=== PATIENT | female | born 1950 | race Caucasian/White ===

== ENCOUNTER 2024-07-28 15:46 | Observation (INO) | payer MEDICARE, OTHER ==
[~2024-07-28] VITALS: Ht 157.5 cm; Wt 108.6 kg
[~2024-07-28 15:46] MED LIST: ACETAMINOPHEN500 MG PO; AMLODIPINE BESYL5 MG PO; ASPIR 8181 MG PO; COZAAR25 MG PO; ESCITALOPRAM OX10 MG PO; HYDROCHLOROTHIA25 MG PO; LATANOPROST2.5 ML OPTH; LOPERAMIDE2 M1 PO; LOSARTAN-HCTZ1 EACH PO; METOPROLOL SUCC25 MG PO; OXYCODON-ACETA1 EAC2 PO; SEVOFLURANE 250 ML BTL INH ONE
[2024-07-28] MEDS ORDERED: LOSARTAN POTASS50 MG PO (16:06)
[2024-07-28] MEDS ORDERED: METFORMIN HCL500 M1 PO (16:06)
[2024-07-28] MEDS ORDERED: ATORVASTATIN CA20 MG PO (16:06)
[2024-07-28 16:35] LABS: BASOPHILS 0.7 % (0-2); EOSINOPHILS 4.1 % (0-6); HEMATOCRIT 40.7 % (35.0-50.0); HEMOGLOBIN 14.2 g/dL (12.0-18.0); LYMPHOCYTES 21.3 % (24-44); MCH 31.3 (27-36); MCHC 34.9 g/dl (30-36); MCV 89.9 fl (81-99); MONOCYTES 7.8 % (0-12); NEUTROPHILS 66.1 % (39-80); PLATELET COUNT 242 K/uL (140-440); RBC 4.53 M/ul (4.3-5.7); RDW 13.5 (10.5-15.0)
[2024-07-28 16:39] LABS: ANION GAP 10.6 (7-21); BUN/CREATININE RATIO 21.21 (6.0-28.6); CALCIUM 9.8 mg/dL (8.5-10.1); CREATININE, SERUM 0.99 mg/dL (0.55-1.02); POTASSIUM 3.6 mmol/L (3.5-5.1)
[2024-07-28] MEDS ORDERED: LACTATED RINGER'S 1,000 ML IV SCH ×2 (16:45→17:15)
[2024-07-28] MEDS ORDERED: ondansetron HCL 4 MG/2 ML VIAL IV PRN (17:15)
[2024-07-28] MEDS ORDERED: LIDOCAINE HCL 2% 5 ML SDV ONE (17:39)
[2024-07-28] MEDS ORDERED: propofoL 200 MG/20 ML VIAL ONE (17:39)
[2024-07-28] MEDS ORDERED: ROCURONIUM BROMIDE 50 MG/5 ML SYR ONE (17:39)
[2024-07-28] MEDS ORDERED: ondansetron HCL 4 MG/2 ML VIAL ONE (17:39)
[2024-07-28] MEDS ORDERED: SUCCINYLCHOLINE IN 0.9% NACL 200 MG/10 ML SYRINGE ONE (17:39)
[2024-07-28] MEDS ORDERED: fentaNYL citrate 100 MCG/2 ML VIAL ONE (17:39)
[2024-07-28] MEDS ORDERED: DEXAMETHASONE SOD PHOS 4 MG/ML VIAL ONE (18:14)
[2024-07-28] MEDS ORDERED: FLUTICASONE PRO16 GM NAS (18:39)
[2024-07-28] MEDS ORDERED: SUCRALFATE1 GM PO (18:40)
[2024-07-28 18:47] VITALS: BP 122/53
[2024-07-28] MEDS ORDERED: PROTONIX40 MG PO (20:13)
[2024-07-28] MEDS ORDERED: PROTONIX40 MG (20:50)
[2024-07-28] MEDS ORDERED: FLUTICASONE PROPIONATE 50 MCG BTL NAS SCH (21:00)
[2024-07-28] MEDS ORDERED: PANTOPRAZOLE SODIUM 40 MG TABEC PO SCH (21:00)
[2024-07-28] MEDS ORDERED: SUCRALFATE 1 GM TAB PO SCH (21:00)
[2024-07-28 21:20] VITALS: BP 152/72
--- NOTE | 2024-07-30 14:33 | OR ---
[facility] [address] [place], [place] [address] Signed DATE OF OPERATION: 07/28/2024 SURGEON: Fernando Dubois MD PREOPERATIVE DIAGNOSIS: Food impaction, proximal esophagus. No clinical antecedent gastroesophageal reflux history. POSTOPERATIVE DIAGNOSES: 1. Two specific strictures of esophagus, one at 18 cm, the other at 25 cm, food impaction in the past. 2. Poor flap valve and associated proximal gastritis. PROCEDURE: Esophagogastroduodenoscopy with biopsy of strictures. ANESTHESIA: General endotracheal, Alvin Argueta, CORPORATE CONTROLLER. 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 She is well known to me from the past. 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 She has recovered from that fully. For the past month, she has had episodes of "slow swallowing" and today after eating a hamburger had sensation of impaction of food in the proximal esophagus. This resulted in hypersalivation and she presented to the emergency room, where she was evaluated by Dr. Carlisle. Her CBC and chem profile are normal. She takes no medication for reflux and denies clinical reflux-type symptoms. I have recommended upper endoscopy to remove the foreign body that is present and other indicated procedures depending on findings. The risk of bleeding, infection, perforation, and so forth were reviewed with her in detail. She understands and wished to proceed. FINDINGS: Safe intubation of the trachea was undertaken. The scope was easily passed into the esophagus. At approximately 18 cm from the incisors, there was a concentric stricture that was short, but no sign of foreign body at that point. This scope with some amount of deliberate and controlled pressure was passed through the strictured area to the distal esophagus, which had additional inflammatory changes and some suggestion of Electronically Signed By: FERNANDO DUBOIS MD 07/30/24 3397 PATIENT NAME: NEGIN OSPINA OPERATIVE REPORT DATE OF : 48 REPORT #: [id number] PHYSICIAN: FERNANDO DUBOIS MD PCP: ROOPA JOYCE DO REPORT IS CONFIDENTIAL AND NOT TO BE RELEASED WITHOUT AUTHORIZATION [facility] [address] [place], [place] [address] Signed possible eosinophilic esophagitis. The scope was easily passed to the stomach at that point. The stomach was evaluated and rugal folds appeared normal. The pylorus was normal. Scope was passed through it into the duodenum, which was normal. Biopsies were taken of the duodenum and subsequently the proximal esophagus. CLOtest biopsies were taken as well. The CLOtest was negative 20 minutes post procedure. Retroflexed view confirmed a poor flap valve and small hiatal hernia. The scope was withdrawn after biopsies of the proximal stomach to the distal esophagus, which had inflammation, but no sign of Phelps's epithelium. Biopsies were obtained. Further withdrawal to 25 cm showed an area of inflammatory change, which was also biopsied and upon withdrawal to the more proximal esophagus at 18 cm, the area of fracturing of the web was quite obvious. Biopsies were taken of this area at 18 cm as well. Further withdrawal showed no other findings of concern. The patient was taken to recovery room in good condition. CONCLUDING DIAGNOSIS: Significant progressive dysphagia, probably eosinophilic esophagitis, though pathology is pending. PLAN: Empiric treatment with Carafate slurry for 2 weeks to help mucosal healing. Initiate proton pump inhibitor omeprazole 20 mg p.o. b.i.d. for now and initiate fluticasone two sprays b.i.d. swallowed x3 weeks with 1 week of rest with ongoing therapy. We will plan to see her back in the office in 4 to 6 weeks as well. MD BECKY Anna/JULIAL /[id number] cc: MD Kiran Carlisle MD Electronically Signed By: FERNANDO DUBOIS MD 07/30/24 1433 PATIENT NAME: NEGIN OSPINA OPERATIVE REPORT DATE OF : [birth year] REPORT #: [id number] PHYSICIAN: FERNANDO DUBOIS MD PCP: ROOPA JOYCE DO REPORT IS CONFIDENTIAL AND NOT TO BE RELEASED WITHOUT AUTHORIZATION [facility] [address] [place], [place] [address] Signed Copies: ~ Electronically Signed By: FERNANDO DUBOIS MD 07/30/24 1433 PATIENT NAME: NEGIN OSPINA OPERATIVE REPORT DATE OF : 48 REPORT #: [id number] PHYSICIAN: FERNANDO DUBOIS MD PCP: ROOPA JOYCE DO REPORT IS CONFIDENTIAL AND NOT TO BE RELEASED WITHOUT AUTHORIZATION
--- NOTE | 2024-07-30 14:33 | HP ---
[facility] [address] [place], [place] [address] Signed ADMISSION DATE: 07/28/2024 TIME: 5:05 p.m. PROBLEM: Possible food impaction, proximal esophagus. 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 She has recovered from that well. The patient has had episodic proximal cervical dysphagia-type symptoms over the past month or so. She was eating a hamburger today and thought that an onion or similar food product was "stuck in her throat". She points to the sternal notch as area of problem. The patient has had regurgitation of secretions, and generally speaking, does not feel like the process has passed. She has somewhat of a hoarse voice as well at least from my recollection of her normal voice and she thinks that is mostly related to the fact her dentures are not in at this time. Her medications at time of presentation include Tylenol, escitalopram, latanoprost, hydrochlorothiazide, losartan, and atorvastatin. She last ate at 2:30 and did not have too much when she felt the sensation of obstruction. SOCIAL HISTORY: She is here with her daughter. She lives in [place]. She previously worked at [employer] as a manager medicare marketing. REVIEW OF SYSTEMS: Denies any chest pain or shortness of breath. Does have some excessive secretions. CHEST: Shows normal respiratory excursion without tachypnea. Trachea is midline. There is no crepitus. ABDOMEN: Nondistended. EXTREMITIES: Show no clubbing, cyanosis, or edema. LABORATORY STUDIES: Show a white count of 7.3, hematocrit 40.7, platelets 242,000. Chem profile essentially normal. BUN is 21, glucose is 115, calcium 9.8. Electronically Signed By: FERNANDO DUBOIS MD 07/30/24 1433 PATIENT NAME: NEGIN OSPINA HISTORY AND PHYSICAL DATE OF : 48 REPORT #: [id number] PHYSICIAN: FERNANDO DUBOIS MD PCP: ROOPA JOYCE DO REPORT IS CONFIDENTIAL AND NOT TO BE RELEASED WITHOUT AUTHORIZATION [facility] [address] [place], [place] [address] Signed ASSESSMENT: She may or may not have food impaction at the level of the esophagus described at the cervical or sternal notch. It is reasonably probable she does. She has had antecedent dysphagia leading to this time. She denies any reflux problems from the past and certainly takes no anti-reflux medications. I would recommend upper endoscopy under general anesthesia and removal of foreign body if present. If not, complete evaluation and biopsy, as she may have some other cause of her sensation of dysphagia. The risk of bleeding, infection, and perforation was reviewed with her in detail. She understands and wished to proceed. MD BECKY Anna/JASON /[id number] cc: DO Dr. Rachael Mireles Copies: ROOPA JOYCE DO ~ Electronically Signed By: FERNANDO DUBOIS MD 07/30/24 1433 PATIENT NAME: NEGIN OSPINA HISTORY AND PHYSICAL DATE OF : 48 REPORT #: [id number] PHYSICIAN: FERNANDO DUBOIS MD PCP: ROOPA JOYCE DO REPORT IS CONFIDENTIAL AND NOT TO BE RELEASED WITHOUT AUTHORIZATION
--- NOTE | 2024-08-02 20:21 | PATH ---
[facility] [address] [facility] [place], [place] [address] Signed THIS IS AN ADDENDUM REPORT SPECIMEN(S): A PROXIMAL STOMACH BIOPSY SPECIMEN(S): B LOWER ESOPHAGEAL BIOPSY SPECIMEN(S): C STRICTURE MIDDLE ESOPHAGEAL BIOPSY SPECIMEN(S): D ESOPHAGEAL BIOPSY, 18 CM SPECIMEN SOURCE: A. PROXIMAL STOMACH BIOPSY B. LOWER ESOPHAGEAL BIOPSY C. STRICTURE MIDDLE ESOPHAGEAL BIOPSY D. ESOPHAGEAL BIOPSY, 18 CM CLINICAL HISTORY: Food impaction, stricture at 18 cm and 25 cm FINAL PATHOLOGIC DIAGNOSIS: A. Proximal stomach, biopsies: - Mild nonspecific chronic gastritis. - Negative for Helicobacter pylori by HE. - Negative for intestinal metaplasia, dysplasia or malignancy. B. Lower esophagus, biopsy: - Fragments of gastric glandular and squamous mucosa with mild reflux-associated change. - Negative for intestinal metaplasia, dysplasia or malignancy. C. Stricture middle esophagus, biopsies: - Gastric glandular and squamous mucosa with mild reflux-associated change. - Negative for eosinophilic esophagitis, dysplasia or malignancy. D. Esophagus at 18 cm, biopsies: - Mild acute esophagitis with mild reactive change. - Negative for eosinophilic esophagitis, dysplasia or malignancy. - A PAS stain for fungal organisms is pending and will be reported by addendum. CHITRA:dc MICROSCOPIC EXAMINATION: Histologic sections of all submitted blocks are examined by light microscopy. These findings, together with the gross examination, support the pathologic diagnosis. GROSS DESCRIPTION: PATIENT NAME: NEGIN CLARKE PATHOLOGY DATE OF : 48 REPORT #: [id number] PHYSICIAN: [employer] PATHOLOGY PCP: ROOPA JOYCE DO REPORT IS CONFIDENTIAL AND NOT TO BE RELEASED WITHOUT AUTHORIZATION [facility] [address] [place], [place] [address] Signed A. The specimen, labeled and designated "Jammie Clarke, proximal stomach biopsy," is received in formalin and consists of one mckeon soft tissue fragment, 0.4 cm. Entirely submitted in (A1). B. The specimen, labeled and designated "Jammie Clarke, lower esophageal biopsy," is received in formalin and consists of two mckeon soft tissue fragments, ranging from 0.2-0.7 cm. Entirely submitted in (B1). C. The specimen, labeled and designated "Jammie Clarke, stricture middle esophageal biopsy," is received in formalin and consists of four mckeon soft tissue fragments, ranging from 0.2-0.4 cm. Entirely submitted in (C1). D. The specimen, labeled and designated "Jammie Clarke, esophageal biopsy, 18 cm," is received in formalin and consists of four mckeon soft tissue fragments, ranging from 0.2-0.5 cm. Entirely submitted in (D1). AB (under the direct supervision of a pathologist) The Gross Description was prepared using a voice recognition system. The report was reviewed for accuracy; however, sound-alike word errors, addition and/or deletions may occur. If there is any question about this report, please contact Client Services. PERFORMING LABORATORY: Technical component was performed by [facility], [address] [place] [id number] (CLIA# [id number]). Professional interpretation was performed by [facility], [address] [place] [id number] (CLIA#: [id number]). ADDITIONAL NOTES: Immunohistochemical and/or in situ hybridization studies if performed in this case included appropriate positive controls that reacted as expected. This test was developed and its performance characteristics determined by [facility]. It has not been cleared or approved by the U.S. Food and Drug Administration. The FDA has determined that such clearance or approval is not necessary. This test is used for clinical purposes. It should not be regarded as investigational or for research. [facility] is certified under the Clinical Laboratory Improvement Amendments of 1988 (CLIA) as qualified to perform high complexity clinical laboratory testing. Professional interpretation was performed by [facility] - [place] - [address] [place] [address] (CLIA#: [id number]). PATIENT NAME: NEGIN CLARKE PATHOLOGY DATE OF : 48 REPORT #: [id number] PHYSICIAN: SUNITA ANGEL PCP: ROOPA JOYCE DO REPORT IS CONFIDENTIAL AND NOT TO BE RELEASED WITHOUT AUTHORIZATION [facility] [address] [place], [place] [address] Signed REASON FOR ADDENDUM: To report the result of a PAS with diastase stained section. ADDENDUM PATHOLOGIC DIAGNOSIS: PAS with diastase stain on specimen D, esophageal biopsy at 18 cm: - Negative for fungal organisms. ADDENDUM COMMENT: A PAS with diastase stain is performed with appropriate controls on block D1 and is negative for fungal organisms. There is no diagnostic features remain unchanged. [facility] Diagnostician: Jalen Fan MD Pathologist Diagnostician: Damian Barajas MD Pathologist Electronically Signed 08/02/2024 Copies: ~ PATIENT NAME: NEGIN CLARKE PATHOLOGY DATE OF : 48 REPORT #: [id number] PHYSICIAN: SUNITA ANGEL PCP: ROOPA JOYCE DO REPORT IS CONFIDENTIAL AND NOT TO BE RELEASED WITHOUT AUTHORIZATION
== END 2024-07-28 21:35 | disposition home or self-care (01) ==
LOC: ED 15:46 → MS 15:48
PROVIDERS: Emergency Medicine; ADMIT Surgery; ATTEND Surgery
PROC: 0DB28ZX Excision of Middle Esophagus, Via Natural or Artificial Opening Endoscopic, Diagnostic (ICD-10-PCS; 2024-07-28)
PROC: 0DB38ZX Excision of Lower Esophagus, Via Natural or Artificial Opening Endoscopic, Diagnostic (ICD-10-PCS; 2024-07-28)
PROC: 0DB68ZX Excision of Stomach, Via Natural or Artificial Opening Endoscopic, Diagnostic (ICD-10-PCS; principal; 2024-07-28 17:31)
DX: K22.2 Esophageal obstruction (principal); K20.90 Esophagitis, unspecified without bleeding; K29.50 Unspecified chronic gastritis without bleeding; I10 Essential (primary) hypertension; Z87.891 Personal history of nicotine dependence; Z88.6 Allergy status to analgesic agent; Z79.899 Other long term (current) drug therapy
CPT/HCPCS: 00731; 36415; 80048; 85025; 88305; 88312; A9270; G0378; J0330; J1100; J2003; J2405; J2704; J3010; J3490

== ENCOUNTER 2024-09-19 10:57 | Emergency (ER) | payer OTHER, MEDICARE ==
[~2024-09-19] VITALS: Ht 157.5 cm; Wt 106.2 kg
[~2024-09-19 10:57] MED LIST changes: +ATORVASTATIN CA20 MG PO; +FLUTICASONE PRO16 GM NAS; +LOSARTAN POTASS50 MG PO; +METFORMIN HCL500 M1 PO; +PROTONIX40 MG; +PROTONIX40 MG PO; -SEVOFLURANE 250 ML BTL INH ONE; +SUCRALFATE1 GM PO
[2024-09-19] MEDS ORDERED: ACETAMINOPHEN 500 MG TAB PO ONE (11:15)
[2024-09-19 13:07] VITALS: BP 139/55
== END 2024-09-19 13:08 | disposition home or self-care (01) ==
LOC: ED 10:57
DX: S00.03XA Contusion of scalp, initial encounter (principal); I10 Essential (primary) hypertension; X58.XXXA Exposure to other specified factors, initial encounter; Z79.899 Other long term (current) drug therapy; Z79.51 Long term (current) use of inhaled steroids; Z88.6 Allergy status to analgesic agent; Z87.891 Personal history of nicotine dependence
CPT/HCPCS: 70450; 72125; 99284-25; A9270

== ENCOUNTER 2025-01-15 05:47 | Day surgery (SDC) | payer MEDICARE, OTHER ==
[~2025-01-15] VITALS: Ht 157.5 cm; Wt 105.0 kg
[~2025-01-15 05:47] MED LIST changes: +LACTATED RINGER'S 1,000 ML IV SCH; +OMEPRAZOLE20 MG PO
[2025-01-15 06:02] VITALS: BP 154/71
[2025-01-15] MEDS ORDERED: IBLOOD GLUCOSE TEST STRIP 1 EA TEST VI PRN (07:00)
[2025-01-15] MEDS ORDERED: LIDOCAINE HCL 1% 5 ML SDV INJ ONE (07:00)
[2025-01-15] MEDS ORDERED: LIDOCAINE HCL 2% 5 ML SDV ONE (07:46)
--- NOTE | 2025-01-15 08:08 | NUR ---
01/15/25 0808 Bonita Brown 0802-PATIENT ARRIVED TO PACU ON 4L NC RR EVEN REACTIVE TO VERBAL STIMULI MOVING EXTREMITIES AND OPENING EYES ORIENTED TO PACU. SINUS BRADYCARDIA HR 50'S. IVF INFUSING
[2025-01-15 08:57] VITALS: BP 159/70
--- NOTE | 2025-01-16 11:20 | OR ---
[facility] [address] [place], [place] [address] Signed DATE OF OPERATION: 01/15/2025 SURGEON: Fernando Dubois MD PREOPERATIVE DIAGNOSES: 1. History of food impaction in July 2024 with segmental stricture at 18 and 25 cm. 2. Negative history of eosinophilic esophagitis. POSTOPERATIVE DIAGNOSIS: Chronic inflammatory change 18-25 cm. PROCEDURES: 1. Esophagogastroduodenoscopy. 2. Cuban over the wire, 42-Burmese single pass dilation. ANESTHESIA: Propofol infusion, Alvin Argueta, ENTERPRISE APPLICATION DEVELOPER. INDICATION: A 74-year-old woman is a patient of Dr. Joyce and underwent upper endoscopy for food impaction by me in July of 2024. She was found to have strictured areas at 18 and 25 cm. The scope did pass through the area. She did not undergo dilation at that time. The biopsies were obtained, which were negative for eosinophilic esophagitis. She was treated with PPI medication, omeprazole, and Carafate. She remains on the PPI medication. She still has occasional proximal dysphagia. She is admitted at this time to undergo upper endoscopy and dilation, prepped by Cuban over the wire technique. She understands the risks of bleeding, infection, and perforation related to dilation and wished to proceed. FINDINGS: Indeed between 18 and 25 cm, there was a roughened appearance of the esophagus. There was no concentric stricture, but the area was obviously quite chronically inflamed. The stomach and duodenum were essentially normal. Flap valve was poor. A single pass Cuban over the wire dilation was undertaken with 42-Burmese implement. Examination showed mucosal cracking with the bleeding as would be expected. Additional dilation was not undertaken. DESCRIPTION OF PROCEDURE: The patient was brought to the endoscopy suite, given topical lidocaine hypopharyngeal anesthesia and placed in lateral decubitus position. She was given intravenous sedation Electronically Signed By: FERNANDO DUBOIS MD 01/16/25 1120 PATIENT NAME: NEGIN OSPINA OPERATIVE REPORT DATE OF : 48 REPORT #: [id number] PHYSICIAN: FERNANDO DUBOIS MD PCP: KIRIT JOYCE DO REPORT IS CONFIDENTIAL AND NOT TO BE RELEASED WITHOUT AUTHORIZATION [facility] [address] [place], [place] [address] Signed with propofol by the manager culinary. Full cardiopulmonary monitoring was maintained. A bite block was placed, though she was edentulous with dentures removed. An Olympus video upper endoscope was passed in the hypopharynx and visualized the upper esophagus and midportion and the area between 18 and 25 cm was rough and without distinct stricture, but clearly chronically a problem. The scope was passed beyond this to the distal esophagus, which was normal. Stomach was normal with normal rugal folds. Antrum, pylorus were normal. Duodenum was normal. Scope was withdrawn and the retroflexed view showed the flap valve to be somewhat loose. The scope was withdrawn to the distal esophagus and then advanced into the stomach once again. The wire was passed through the operating channel of the scope into this and situated in the distal portion of the stomach. The scope was carefully withdrawn stabilizing the wire preventing its withdrawal. A 42-Burmese Cuban over the wire dilator was copiously lubricated and passed over the wire and careful passage of the dilator over the wire undertaken. The scope was then carefully withdrawn as was the wire in continuity. The scope was once again reintroduced and passed in the esophagus where hemorrhagic changes were noted from cracking of the mucosa from the dilation. The stomach was intubated showing no sign of problem there. Carefully, the scope was withdrawn and irrigation undertaken showing disruption of mucosal barrier as expected with mucosal cracking as anticipated. There was no sign of complication. The scope was withdrawn and removed. The patient was taken to the recovery room in good condition. CONCLUDING DIAGNOSIS: Successful dilation, 42-Burmese over the wire technique. PLAN: She will undergo Carafate slurry q.i.d. and PPI medication. We will see her back in the office in six weeks, at which point we will likely return to PPI medication alone. Repeat upper endoscopy will be predicated based on clinical response to current dilation. She may require additional dilation in the future. MD BECKY Anna/MODL /[id number] cc: Kirit Joyce DO Electronically Signed By: FERNANDO DUBOIS MD 01/16/25 1120 PATIENT NAME: NEGIN OSPINA OPERATIVE REPORT DATE OF : 48 REPORT #: [id number] PHYSICIAN: FERNANDO DUBOIS MD PCP: KIRIT JOYCE DO REPORT IS CONFIDENTIAL AND NOT TO BE RELEASED WITHOUT AUTHORIZATION [address] [address] Signed Copies: KIRIT JOYCE DO ~ Electronically Signed By: FERNANDO DUBOIS MD 01/16/25 1120 PATIENT NAME: NEGIN OSPINA OPERATIVE REPORT DATE OF : 48 REPORT #: [id number] PHYSICIAN: FERNANDO DUBOIS MD PCP: KIRIT JOYCE DO REPORT IS CONFIDENTIAL AND NOT TO BE RELEASED WITHOUT AUTHORIZATION
== END 2025-01-15 09:00 | disposition home or self-care (01) ==
LOC: DS 05:47
PROVIDERS: ATTEND Surgery
PROC: 0D758ZZ Dilation of Esophagus, Via Natural or Artificial Opening Endoscopic (ICD-10-PCS; principal; 2025-01-15 07:30)
DX: K22.2 Esophageal obstruction (principal); K20.90 Esophagitis, unspecified without bleeding; I10 Essential (primary) hypertension; E78.5 Hyperlipidemia, unspecified; C44.01 Basal cell carcinoma of skin of lip; G47.30 Sleep apnea, unspecified; Z88.6 Allergy status to analgesic agent; Z91.018 Allergy to other foods; Z79.899 Other long term (current) drug therapy
CPT/HCPCS: 00813; J2003; J2704; J7121